=== PATIENT | female | born 1980 | race African-American/Black ===

== ENCOUNTER 2023-09-16 17:34 | Emergency (ER) | payer SELFPAY ==
[2023-09-16 17:44] VITALS: BMI 33.5
[2023-09-16] MEDS ORDERED: ACETAMINOPHEN INJECTION 100 ML IVPB ONE (18:34)
[2023-09-16] MEDS ORDERED: LIDOCAINE 4% PATCH TP ONE (18:34)
[2023-09-16] MEDS: ACETAMINOPHEN 1000 MG/100 ML BAG IVPB ONE (18:39)
[2023-09-16] MEDS: LIDOCAINE 4% PATCH TP ONE (18:39)
[2023-09-16 18:41] LABS: BASO % 0.7 % (0-2.0); EOS % 1.7 % (0-4.5); HEMATOCRIT 37.5 % (32.4-45.2); HEMOGLOBIN 12.5 GM/dL (10.7-15.3); LYMPH % 29.8 % (8-40); MCHC 33.2 g/dl (32.0-36.0); MEAN CELL VOLUME 87.3 fl (80-96); MEAN PLT VOLUME 7.8 fl (7.5-11.1); MONO % 5.1 % (3.8-10.2); NEUT % 62.7 % (42.8-82.8); PLATELET COUNT 354 10^3/uL (134-434); RDW 14.3 % (11.6-15.6); WHITE BLOOD COUNT 6.1 K/mm3 (4.0-10.0)
[2023-09-16 18:53] LABS: POTASSIUM 5.3 mmol/L (3.5-5.1)
[2023-09-16 18:55] LABS: CALCIUM 8.6 mg/dL (8.5-10.1)
[2023-09-16 18:56] LABS: ALBUMIN 3.5 g/dl (3.4-5.0); BLOOD UREA NITROGEN 9.7 mg/dL (7-18)
[2023-09-16 18:59] LABS: CREATININE 0.8 mg/dL (0.55-1.3)
[2023-09-16 19:01] LABS: BILIRUBIN,TOTAL 0.3 mg/dL (0.2-1); TOT PROT 7.5 g/dl (6.4-8.2)
[2023-09-16 23:49] VITALS: BP 122/77; PULSE 72; RESP 20; TEMP 98.2
== END 2023-09-17 00:19 | disposition home or self-care (01) ==
LOC: JER 17:34
PROC: 3E030NZ Introduction of Analgesics, Hypnotics, Sedatives into Peripheral Vein, Open Approach (ICD-10-PCS; principal; 2023-09-16)
DX: R20.2 Paresthesia of skin (principal); M79.601 Pain in right arm; M79.602 Pain in left arm
CPT/HCPCS: 36415; 70450-TC; 70496-TC; 70498-TC; 80053; 84703; 85025; 99284-25; J0131